=== PATIENT | female | born 1990 | race African-American/Black ===

== ENCOUNTER 2019-05-07 16:19 | Outpatient (RCR) | payer OTHER, SELFPAY ==
[2019-05-07 17:58] LABS: Basophils Percent Auto 0.3 % (0.2-1.2); Eosinophils Absolute Auto 0.1 K/mm3 (0-0.3); Eosinophils Percent Auto 0.7 % (0-4.4); Hematocrit 29.3 % (37.0-47.0); Immature Granulocyte Absolute 0.05 K/mm3 (0.00-0.031); Immature Granulocyte Percent A 0.6 % (0-0.5); Lymphocytes Absolute Auto 3.14 K/mm3 (0.9-3.2); Lymphocytes Percent Auto 34.7 % (18.3-44.2); Mean Corpuscular HGB Conc 30.7 g/dl (32-36); Mean Corpuscular Volume 74.7 fl (80-100); Mean Platelet Volume 10.8 fl (7.4-10.4); Monocytes Absolute Auto 0.5 K/mm3 (0.1-0.6); Monocytes Percent Auto 5.2 % (2.6-8.5); Neutrophils Absolute Auto 5.3 K/mm3 (1.3-6.7); Neutrophils Percent Auto 58.5 % (45.5-73.1); Platelet Count Result 364 k/mm3 (150-375); Red Blood Count 3.92 M/mm3 (4.2-5.4); Red Cell Distribution Width 14.4 % (11.5-14.5); White Blood Count 9.1 K/mm3 (4.5-10.0)
[2019-05-07 18:12] LABS: Glucose 1 Hour PP 50gm Dose 152 mg/dL
[2019-05-07 18:52] LABS: Hepatitis B Surface Antigen Negative (Negative); Rubella IgG Antibody 61.7 IU/ML
[2019-05-07 18:53] LABS: HIV 1/2 Ab P24 Ag Result Negative (Negative)
[2019-05-08 11:15] LABS: Rapid Plasma Reagin Non-Reactive (NonReactive)
[2019-05-10 11:20] LABS: Varicella IgM Antibody <=0.90 (<=0.90)
== END 2019-08-05 23:59 | disposition home or self-care (01) ==
LOC: ANHLAB 16:19
PROVIDERS: Visit Provider Obstetrics & Gynecology
DX: N92.5 Other specified irregular menstruation (principal); E66.9 Obesity, unspecified
CPT/HCPCS: 36415; 82947; 84702; 85025; 86592; 86644; 86703; 86747; 86762; 86787; 86850; 86900; 86901; 87077; 87086; 87088; 87186; 87340; G0432

== ENCOUNTER 2019-05-28 21:12 | Inpatient (IN) | payer OTHER, SELFPAY ==
[2019-05-28] VITALS (7 sets, daily range): BP systolic 142–179; BP diastolic 89–98; PULSE 96–107; BMI 34.5
--- NOTE | 2019-05-28 22:55 | LDADM ---
This patient, Chana Judge, was admitted to Labor/Delivery/Recovery 103 on 05/28/19 at 22:17. Plans for labor, pain management and were discussed with patient. Patient/family oriented to hospital policies and general routines including ID bracelet, bed and alarms, visiting hours, pain management, procedures, bathroom and other care routines, personal items, smoking policy, room service/diet and guest tray routines, security routines, and visiting hours. Patient/Family are encouraged to report perceived risks to care and to ask questions if they do not understand what they are told or what they should do. See OBIX for further documentation.
[2019-05-28 23:19] LABS: Basophils Percent Auto 0.3 % (0.2-1.2); Eosinophils Absolute Auto 0.1 K/mm3 (0-0.3); Eosinophils Percent Auto 0.7 % (0-4.4); Hematocrit 29.1 % (37.0-47.0); Hemoglobin 8.8 g/dL (12.0-15.0); Immature Granulocyte Absolute 0.05 K/mm3 (0.00-0.031); Immature Granulocyte Percent A 0.5 % (0-0.5); Lymphocytes Percent Auto 35.6 % (18.3-44.2); Mean Corpuscular HGB Conc 30.2 g/dl (32-36); Mean Corpuscular Hemoglobin 21.8 pg (26-34); Mean Corpuscular Volume 72.2 fl (80-100); Mean Platelet Volume 11.5 fl (7.4-10.4); Monocytes Absolute Auto 0.7 K/mm3 (0.1-0.6); Monocytes Percent Auto 6.4 % (2.6-8.5); Neutrophils Percent Auto 56.5 % (45.5-73.1); Platelet Count Result 228 k/mm3 (150-375); Red Blood Count 4.03 M/mm3 (4.2-5.4); Red Cell Distribution Width 14.8 % (11.5-14.5); White Blood Count 10.7 K/mm3 (4.5-10.0)
[2019-05-28] MEDS: DINOPROSTONE 10 MG VAG INSERT VAGINAL (23:27)
[2019-05-28 23:28] LABS: Alanine Aminotransferase 9 U/L (4-35); Albumin Level 3.5 g/dL (3.5-5.1); Alkaline Phosphatase 195 U/L (38-126); Aspartate Amino Transferase 21 U/L (14-36); Bilirubin,Total 0.1 mg/dL (0.2-1.3); Blood Urea Nitrogen 5 mg/dL (7-17); Calcium 9.3 mg/dL (8.4-10.2); Carbon Dioxide 23 mmol/L (22-30); Chloride 101 mmol/L (98-107); Estimated CRCL calculation 168 ml/min; Estimated Glomerular Filt Rate > 60; Glucose 129 mg/dL (65-105); Potassium 4.1 mmol/L (3.4-5.0); Sodium 135 mmol/L (137-145)
[2019-05-28 23:37] LABS: Uric Acid 5.2 mg/dL (2.5-7.5)
[2019-05-29] VITALS (112 sets, daily range): BP systolic 122–164; BP diastolic 54–99; PULSE 70–132; RESP 14–16; TEMP 36.4–37.1; O2SAT 95–100
[2019-05-29] MEDS: LACTATED RINGERS 1,000 ML 125 ML IV CONT ×2 (07:17→08:41)
--- NOTE | 2019-05-29 07:46 | WPDHPUPDATE1 ---
History and Physical Update Update Date/Time: 05/29/19 07:46 History and Physical has been reviewed, including an updated exam of the patient. There are NO changes in the patient's condition. Risks, benefits, and alternatives have been discussed and questions answered. Patient agrees to proceed with procedure.
--- NOTE | 2019-05-29 07:46 | WPDOBADMIT ---
Obstetrics - Admit Note Admission Note: record reviewed. No pertinent additions to the history and/or any subsequent changes in the physical findings that are not consistent with the expected course of the were found. Additions to the history and/or subsequent changes in the physical findings follow. None.
[2019-05-29 07:58] LABS: Rapid Plasma Reagin Non-Reactive (NonReactive)
--- NOTE | 2019-05-29 13:18 | PM.OBPRVD ---
OB - Delivery Note Procedure Delivery date: 05/29/19 events: Induced HTN Route of delivery: Episiotomy description: None Laceration description: None Specimen: Yes Estimated blood loss (mL): 200 Anesthesia type: Epidural Disposition: floor Narrative: Patient was prepped and draped in the usual manner for this procedure. Maternal expulsive effort readily deliver the vertex which was suctioned of the naso and oropharynx. Nuchal cord was noted and delivered through with further pushing. Cord was clamped and cut and the baby was passed off the operative field. Placenta delivered spontaneously. Cervix vagina and vulva were inspected. No lacerations or tears. Uterus was well contracted at this point the procedure was considered terminated. Baby Weeks of gestation at delivery: 38 gender: Female Weight (pounds): 7 Weight (ounces): 2 presentation: vertex Placenta delivery description: Spontaneous cord vessel description: 3 Vessels score one minute: 8 score five minutes: 9
--- NOTE | 2019-05-29 17:18 | PC.NURSE ---
Patient transferred to post room #287 via wheelchair. Oriented to unit, room, information board, rooming in, admission packet and security measures. Patient verbalizes understanding.
[2019-05-29] MEDS: DOCUSATE SODIUM 100 MG CAPSULE PO (19:53)
[2019-05-29] MEDS: POLYSACCHARIDE IRON COMPLEX 150 MG CAPSULE PO (19:53)
[2019-05-30] MEDS: IBUPROFEN 600 MG TABLET PO (05:16)
[2019-05-30 05:18] LABS: Hematocrit 27.9 % (37.0-47.0); Hemoglobin 8.6 g/dL (12.0-15.0)
[2019-05-30 08:25] VITALS: BP 149/94; PULSE 82; RESP 18; TEMP 36.4
[2019-05-30] MEDS: POLYSACCHARIDE IRON COMPLEX 150 MG CAPSULE PO ×2 (08:43→17:48)
[2019-05-30] MEDS: DOCUSATE SODIUM 100 MG CAPSULE PO ×2 (08:43→17:48)
--- NOTE | 2019-05-30 10:10 | P.DS_ITS ---
OB - DS: Summary OB Procedures : PIH Mgmt OB Procedures Intrapartum: Spontaneous Vag Delivery OB Procedures: : None Time Spent with Patient Time attestation: Total time spent providing and/or coordinating discharge services: DS: Data Data Completed and Pending Pending studies at discharge: Pending at discharge 05/29/19 13:13 Surgical [PTH] Routine Labs on day of discharge: Labs from last 24 hours 05/30/19 05:10 Hgb 8.6 L Hct 27.9 L Discharge Plan Discharge Attending physician on discharge: Dionisio Connolly Discharging Clinician: Dionisio Connolly Anticipated Discharge Date/Time: 05/31/19 10:00 Patient Disposition: Home, Self-Care Activity: as tolerated Diet: as tolerated Patient Instructions: Antibiotic Form Stand Alone Forms: General Discharge Information Follow-up/Referrals: Dionisio Connolly MD [Physician] - 1 Week Discharge Medications: New ibuprofen 600 mg Tablet 600 mg PO Q6H PRN (Reason: Cramping) Qty: 30 RF: 0 Continued PNV 29-1 29 mg iron- 1 mg tablet RF: 0 Discontinued aspirin 81 mg tablet,delayed release (DR/EC) RF: 0 Date of admission: 05/28/19 22:17 Primary Care Provider: PHYSICIAN,REGISTERED NURSE HH CASE MANAGER Admitting Provider: Dionisio Connolly Attending physician on admission: Dionisio Connolly
[2019-05-30] MEDS: TETANUS,DIPHTHERIA,AC PERTUSSIS ADULT 0.5 ML (ADACEL) IM (12:39)
--- NOTE | 2019-05-30 14:10 | WPDANLDPN2 ---
Anes-Prog Note L&D Date/Time: 05/30/19 14:10 Comfortable throughout: labor and delivery Neuraxial method: epidural Epidural/Spinal procedure site: clean & non-tender Neuro status: Neuro function grossly intact. Cardiovascular status: normal Respiratory status: normal Airway patency: baseline Mental status: baseline Post-Op hydration status: normal Vital Signs: Last Vital Signs Temp 97.6 F 05/30/19 08:25 Pulse 82 05/30/19 08:25 Resp 18 05/30/19 08:25 BP 149/94 H 05/30/19 08:25 Pulse Ox 100 05/29/19 19:40 Post-procedural complaints: none Patient feedback: Patient satisfied with anesthetic care.
[2019-05-30 19:40] VITALS: BP 141/89; PULSE 98; RESP 18; TEMP 36.9; O2SAT 100
--- NOTE | 2019-05-31 02:20 | PC.NURSE ---
Patient viewed the discharge video Mother & Baby Care, The First Two Weeks . Patient was given the opportunity and encouraged to ask questions. Patient verbalized understanding of information shared and has been given the mother/baby guide for home reference.
[2019-05-31] MEDS: DOCUSATE SODIUM 100 MG CAPSULE PO (07:58)
[2019-05-31] MEDS: POLYSACCHARIDE IRON COMPLEX 150 MG CAPSULE PO (07:59)
[2019-05-31 08:15] VITALS: BP 135/83; PULSE 79; RESP 18; TEMP 36.7; O2SAT 100
--- NOTE | 2019-06-05 02:35 | PM.OBDSVD ---
DS: Diagnosis Admitting Diagnosis Admitting Diagnosis: Encounter for supervision of normal , unspecified, third trimester OB - DS: Summary OB Procedures : None OB Procedures Intrapartum: Spontaneous Vag Delivery OB Procedures: : None Time Spent with Patient Time attestation: Total time spent providing and/or coordinating discharge services: DS: Data Data Completed and Pending Completed studies during hospitalization: Pending at discharge 05/29/19 13:13 Surgical [PTH] Routine Discharge Plan Discharge Attending physician on discharge: Dionisio Connolly Discharging Clinician: Dionisio Connolly Anticipated Discharge Date/Time: 05/31/19 10:00 Patient Disposition: Home, Self-Care Activity: as tolerated Diet: as tolerated Discharge Instructions: Education: Mom and Baby Guide Given to: Mother Follow-Up: Call your delivering provider's office for an appointment to be seen in: 1 Week Mom and baby should come to the [facility] for the follow-up appointment. Appointment Date/Time: June 03, 2019 at 11:00 am What to expect at your follow-up visit: Physical Assessment Call [phone] if you are unable to keep your appointment time. BREAST CARE: 1. Wear a snug supportive bra. 2. For engorgement discomfort Bottle Feeding: A. May apply ice packs EPISIOTOMY/PERINEAL CARE: 1. Until bleeding stops, use your whitley bottle after urinating 2. Change your pad frequently throughout the day 3. You may take sitz baths several times a day (fill your bathtub with warm water and soak for 20 minutes.) Do NOT bathe in the water 4. No tub baths until seen by your physician - You may shower ACTIVITY: 1. Rest as much as possible. 2. Do not exercise or lift anything heavier than your baby (such as laundry or other children.) 3. Avoid stairs or driving as much as possible. 4. Do not put anything into the vagina. No douching, tampons, or sexual activity until seen by physician. NOTIFY PHYSICIAN IF YOU HAVE ANY QUESTIONS OR IF ANY OF THE FOLLOWING SYMPTOMS OCCUR: 1. If your vaginal bleeding becomes foul smelling. 2. If your vaginal bleeding becomes more heavy than a period or if your bleeding changes from pink to bright red. However, you may pass an occasional walnut-sized clot once or twice for the first week . 3. If you experience a sharp, shooting pain in you calves. 4. If you discover a hard, reddened area on your breast or if you experience flu-like symptoms. DIET: 1. Eat regular, well-balanced meals. 2. Drink plenty of fluids daily. If , drink to thirst. Stand Alone Forms: General Discharge Information Follow-up/Referrals: Dionisio Connolly MD [Physician] - 1 Week Discharge Medications: New ibuprofen 600 mg Tablet 600 mg PO Q6H PRN (Reason: Cramping) Qty: 30 RF: 0 Continued PNV 29-1 29 mg iron- 1 mg tablet RF: 0 Discontinued aspirin 81 mg tablet,delayed release (DR/EC) RF: 0 Date of admission: 05/28/19 22:17 Primary Care Provider: PHYSICIAN,HOT AIR FURNACE INSTALLER AND REPAIRER Admitting Provider: Whitney Medellin Discharge Date/Time: 05/31/19 11:21 Attending physician on admission: Dionisio Connolly
--- NOTE | 2019-06-05 13:27 | P.DS_ITS ---
DS: Diagnosis Admitting Diagnosis Admitting Diagnosis: Encounter for supervision of normal , unspecified, third trimester OB - DS: Summary OB Procedures : None OB Procedures Intrapartum: Spontaneous Vag Delivery OB Procedures: : None Time Spent with Patient Time attestation: Total time spent providing and/or coordinating discharge services: DS: Data Data Completed and Pending Completed studies during hospitalization: Pending at discharge 05/29/19 13:13 Surgical [PTH] Routine Discharge Plan Discharge Attending physician on discharge: Dionisio Connolly Discharging Clinician: Dionisio Connolly Anticipated Discharge Date/Time: 05/31/19 10:00 Patient Disposition: Home, Self-Care Activity: as tolerated Diet: as tolerated Discharge Instructions: Education: Mom and Baby Guide Given to: Mother Follow-Up: Call your delivering provider's office for an appointment to be seen in: 1 Week Mom and baby should come to the [facility] for the follow-up appointment. Appointment Date/Time: June 03, 2019 at 11:00 am What to expect at your follow-up visit: Physical Assessment Call [phone] if you are unable to keep your appointment time. BREAST CARE: 1. Wear a snug supportive bra. 2. For engorgement discomfort Bottle Feeding: A. May apply ice packs EPISIOTOMY/PERINEAL CARE: 1. Until bleeding stops, use your whitley bottle after urinating 2. Change your pad frequently throughout the day 3. You may take sitz baths several times a day (fill your bathtub with warm water and soak for 20 minutes.) Do NOT bathe in the water 4. No tub baths until seen by your physician - You may shower ACTIVITY: 1. Rest as much as possible. 2. Do not exercise or lift anything heavier than your baby (such as laundry or other children.) 3. Avoid stairs or driving as much as possible. 4. Do not put anything into the vagina. No douching, tampons, or sexual activity until seen by physician. NOTIFY PHYSICIAN IF YOU HAVE ANY QUESTIONS OR IF ANY OF THE FOLLOWING SYMPTOMS OCCUR: 1. If your vaginal bleeding becomes foul smelling. 2. If your vaginal bleeding becomes more heavy than a period or if your bleeding changes from pink to bright red. However, you may pass an occasional walnut- sized clot once or twice for the first week . 3. If you experience a sharp, shooting pain in you calves. 4. If you discover a hard, reddened area on your breast or if you experience flu-like symptoms. DIET: 1. Eat regular, well-balanced meals. 2. Drink plenty of fluids daily. If , drink to thirst. Stand Alone Forms: General Discharge Information Follow-up/Referrals: Dionisio Connolly MD [Physician] - 1 Week Discharge Medications: New ibuprofen 600 mg Tablet 600 mg PO Q6H PRN (Reason: Cramping) Qty: 30 RF: 0 Continued PNV 29-1 29 mg iron- 1 mg tablet RF: 0 Discontinued aspirin 81 mg tablet,delayed release (DR/EC) RF: 0 Date of admission: 05/28/19 22:17 Primary Care Provider: PHYSICIAN,RAILWAY STATION MANAGER Admitting Provider: Whitney Medellin Discharge Date/Time: 05/31/19 11:21 Attending physician on admission: Dionisio Connolly
== END 2019-05-31 11:21 | disposition home or self-care (01) | DRG 560 ==
LOC: ANHLDR 22:17 → ANHOB2 05-29 16:17
PROVIDERS: Admitting Provider Obstetrics & Gynecology; Visit Provider Obstetrics & Gynecology
DX: O13.4 Gestational [pregnancy-induced] hypertension without significant proteinuria, complicating childbirth (principal); Z37.0 Single live birth; Z3A.38 38 weeks gestation of pregnancy; O69.81X0 Labor and delivery complicated by cord around neck, without compression, not applicable or unspecified
CPT/HCPCS: 36415; 80053; 84550; 85014; 85018; 85025; 86592; 86850; 86900; 86901; 88307; 90715; A9270; J2590; J2795; J7120

== ENCOUNTER 2020-10-19 15:51 | Observation (INO) | payer OTHER, SELFPAY ==
--- NOTE | ~2020-10-19 | US_ITS ---
EXAMINATION: US venous doppler [facility] EXAM DATE: 10/19/2020 16:52 INDICATION: Left leg pain and swelling. . TECHNIQUE: Multiple grayscale, color flow and Doppler images of the left lower extremity deep venous system were obtained and reviewed. There is no prior study for comparison. FINDINGS: The left common femoral, femoral and profunda veins demonstrate normal color flow, respirat ory variation, augmentation and compressibility. Compressibility, color flow confirmed within the le ft popliteal, posterior tibial, peroneal, and greater saphenous veins. IMPRESSION: 1. No left lower extremity deep venous thrombosis. Reviewed, dictated and finalized at location A.
[2020-10-19 16:08] VITALS: BP 176/80; PULSE 105; RESP 18; TEMP 36.8; O2SAT 100
[2020-10-19 18:46] VITALS: BP 140/105; O2SAT 100
[2020-10-19 18:46] LABS: Basophils Percent Auto 0.2 % (0.2-1.2); Eosinophils Absolute Auto 0.1 K/mm3 (0-0.3); Eosinophils Percent Auto 0.6 % (0-4.4); Hematocrit 31.8 % (37.0-47.0); Hemoglobin 9.8 g/dL (12.0-15.0); Immature Granulocyte Absolute 0.02 K/mm3 (0.00-0.031); Immature Granulocyte Percent A 0.2 % (0-0.5); Lymphocytes Absolute Auto 2.84 K/mm3 (0.9-3.2); Lymphocytes Percent Auto 32.3 % (18.3-44.2); Mean Corpuscular HGB Conc 30.8 g/dl (32-36); Mean Corpuscular Hemoglobin 23.3 pg (26-34); Mean Corpuscular Volume 75.7 fl (80-100); Mean Platelet Volume 10.2 fl (7.4-10.4); Monocytes Absolute Auto 0.6 K/mm3 (0.1-0.6); Neutrophils Absolute Auto 5.3 K/mm3 (1.3-6.7); Neutrophils Percent Auto 59.7 % (45.5-73.1); Platelet Count Result 249 k/mm3 (150-375); Red Cell Distribution Width 15.3 % (11.5-14.5); White Blood Count 8.8 K/mm3 (4.5-10.0)
--- NOTE | 2020-10-19 18:48 | ED.GENADULT ---
HPI - General Adult General Chief complaint: Extremity Problem,Nontraumatic Stated complaint: L Foot pain and swelling Time Seen by Provider: 10/19/20 18:24 Source: patient History of Present Illness HPI narrative: Patient is a 30 y/o female complaining of moderate left ankle and foot swelling starting 2 days ago. She states elevation decreases the swelling. She has minimal pain. She is able to ambulate. She has no fever or chills. Of note, she is approximately 30 week . Her EDC is 12/27/20. Related Data Home Medications Medication Instructions Recorded Confirmed PNV 29-1 tablet 05/28/19 Allergies Allergy/AdvReac Type Severity Reaction Status Date / Time No Known Allergies Verified 10/19/20 18:31 Review of Systems Review of Systems: All systems reviewed & are unremarkable except as noted in HPI and below Constitutional: Constitutional: Denies chills, Denies fever(s), Denies headache(s) and Denies weakness Eyes: Eyes: Denies blurry vision ENT: Denies headache(s) and Denies neck pain Cardiovascular: Cardiovascular: Denies chest pain and Denies dyspnea Respiratory: Respiratory: Denies cough and Denies dyspnea Gastrointestinal: Gastrointestinal: Denies abdominal pain, Denies diarrhea, Denies nausea and Denies vomiting Genitourinary: Genitourinary: Denies hematuria and Denies dysuria Musculoskeletal: Musculoskeletal: Denies back pain, Denies neck pain and Reports other (left foot and ankle swelling) Neurologic: Denies headache(s) and Denies weakness PMFSH Social History Social History Smoking status: Never smoker Substance use: never Gender identity (if verbalized by the patient): Female Spiritual care concerns: No Exam Const: General: no acute distress and well developed Orientation/consciousness: oriented to person, oriented to place, oriented to time and patient oriented x3 HENMT: Head: normocephalic Ears: external ears normal General nose exam: Normal external nose present Eyes: General: appearance normal, both eyes and all related structures Conjunctivae: conjunctivae normal Neck: Neck: normal visual inspection and full ROM Chest: Chest palpation & inspection: normal inspection of the chest and no tenderness Resp: Effort & Inspection: normal respiratory effort Auscultation: clear to auscultation bilaterally Cardio: Rate: regular rate Rhythm: regular rhythm GI: Inspection: distended GI Palp: No abdominal tenderness and Yes Soft to palpation Skin: General skin exam: normal color, turgor normal and erythema (left lower leg and foot) Neuro: General: oriented to person, oriented to place, oriented to time and patient oriented x3 Cognition (Neuro): normal cognition Extrem: General: normal to inspection, full ROM and no pedal edema Left lower extremity: ankle Details: pitting edema and foot Details: edema Psych: Appearance: grossly normal Mental Status: mental status grossly normal Affect: normal affect Course Consultations Consultation #1: Discussed with Dr. Lyn, who recommends patient going to OB for monitoring after discharge. Date: 10/19/20 Time: 20:41 Vital Signs Vital signs: Vital Signs Temperature 36.8 C 10/19/20 16:08 Pulse Rate 105 H 10/19/20 16:08 Respiratory Rate 18 10/19/20 16:08 Blood Pressure 176/80 H 10/19/20 16:08 Pulse Oximetry 100 10/19/20 16:08 Temperature 36.8 C 10/19/20 16:08 Pulse Rate 97 10/19/20 20:32 Respiratory Rate 20 10/19/20 20:32 Blood Pressure 144/106 H 10/19/20 20:32 Pulse Oximetry 100 10/19/20 20:32 Medical Decision Making Vital Signs Vital Signs: Vital Signs Temperature 36.8 C 10/19/20 16:08 Pulse Rate 105 H 10/19/20 16:08 Respiratory Rate 18 10/19/20 16:08 Blood Pressure 176/80 H 10/19/20 16:08 Pulse Oximetry 100 10/19/20 16:08 Temperature 36.8 C 10/19/20 16:08 Pulse Rate 97 10/19/20 20:32 Respiratory Rat
[2020-10-19 18:56] LABS: Alanine Aminotransferase 17 U/L (4-35); Albumin Level 3.4 g/dL (3.5-5.1); Alkaline Phosphatase 108 U/L (38-126); Anion Gap 7 mmol/L (8-16); Aspartate Amino Transferase 57 U/L (14-36); Bilirubin,Total 0.1 mg/dL (0.2-1.3); Blood Urea Nitrogen 7 mg/dL (7-17); Calcium 9.2 mg/dL (8.4-10.2); Carbon Dioxide 24 mmol/L (22-30); Chloride 106 mmol/L (98-107); Estimated CRCL calculation 137 ml/min; Estimated Glomerular Filt Rate > 60; Glucose 94 mg/dL (65-105); Potassium 3.5 mmol/L (3.4-5.0); Sodium 137 mmol/L (137-145)
[2020-10-19 19:12] LABS: Uric Acid 5.9 mg/dL (2.5-7.5)
[2020-10-19 19:15] VITALS: O2SAT 100
[2020-10-19 19:30] VITALS: O2SAT 100
[2020-10-19 20:13] LABS: Add Urine Microscopic? YES; Appearance Urine Turbid (Clear); Bacteria Urine 3+ /hpf; Bilirubin Urine Negative (Negative); Blood Urine 1+ (Negative); Color Urine Yellow (Yellow); Glucose Urine UA Negative (Negative); Ketones Urine 1+ mg/dL (Negative); Leukocyte Esterase Ur 3+ LEU/UL (Negative); Mucus Urine Heavy /lpf; Nitrate Urine Negative (Negative); Protein Urine 2+ mg/dL (Negative); RBC Urine >75 /hpf (0-2); Specific Grav Ur 1.028 (1.001-1.035); Squamous Epithelial Cell Urine Many /hpf (Few); Urobilinogen Urine Negative mg/dL (<2.0); WBC Urine >75 /hpf
[2020-10-19 20:32] VITALS: BP 144/106; BP 146/105; PULSE 94; PULSE 97; RESP 20; O2SAT 100
[2020-10-19 21:00] VITALS: BP 144/106; PULSE 97; RESP 20; TEMP 36.8; O2SAT 100
--- NOTE | 2020-10-19 21:00 | PC.NURSE ---
Pt here for evaluation of Swelling left lower leg and elevated blood pressure. Pt sent from ER after treatment in ER. PIH labs and Doppler study done in ER. Pt to have NST per Dr. Lyn.
== END 2020-10-19 22:05 | disposition home or self-care (01) ==
LOC: ANHED 20:45 → ANHOBPP 22:05
PROVIDERS: Admitting Provider Student in an Organized Health Care Education/Training Program; Emergency Provider Emergency Medicine; PCP Student in an Organized Health Care Education/Training Program; Visit Provider Student in an Organized Health Care Education/Training Program
DX: O99.713 Diseases of the skin and subcutaneous tissue complicating pregnancy, third trimester (principal); L03.116 Cellulitis of left lower limb; O13.3 Gestational [pregnancy-induced] hypertension without significant proteinuria, third trimester; Z3A.30 30 weeks gestation of pregnancy
CPT/HCPCS: 36415; 59025; 80053; 81001; 84550; 85025; 87086; 87088; 93971; 99285; G0378; G0379

== ENCOUNTER 2020-11-24 19:29 | Inpatient (IN) | payer OTHER, SELFPAY ==
[2020-11-24] VITALS (33 sets, daily range): BP systolic 148–207; BP diastolic 81–169; PULSE 76–93; BMI 37.6
[2020-11-24 20:42] LABS: Basophils Percent Auto 0.2 % (0.2-1.2); Eosinophils Absolute Auto 0.1 K/mm3 (0-0.3); Eosinophils Percent Auto 0.5 % (0-4.4); Hematocrit 31.5 % (37.0-47.0); Hemoglobin 9.6 g/dL (12.0-15.0); Immature Granulocyte Absolute 0.04 K/mm3 (0.00-0.031); Immature Granulocyte Percent A 0.3 % (0-0.5); Lymphocytes Absolute Auto 4.42 K/mm3 (0.9-3.2); Lymphocytes Percent Auto 34.7 % (18.3-44.2); Mean Corpuscular HGB Conc 30.5 g/dl (32-36); Mean Corpuscular Hemoglobin 22.5 pg (26-34); Mean Corpuscular Volume 73.9 fl (80-100); Mean Platelet Volume 10.9 fl (7.4-10.4); Monocytes Absolute Auto 0.8 K/mm3 (0.1-0.6); Neutrophils Absolute Auto 7.4 K/mm3 (1.3-6.7); Neutrophils Percent Auto 58.3 % (45.5-73.1); Platelet Count Result 264 k/mm3 (150-375); Red Blood Count 4.26 M/mm3 (4.2-5.4); Red Cell Distribution Width 15.2 % (11.5-14.5); White Blood Count 12.7 K/mm3 (4.5-10.0)
--- NOTE | 2020-11-24 20:45 | PC.NURSE ---
Pt arrived to labor and delivery with complaint of vaginal bleeding and contractions. Stated both bleeding and contraction since yesterday. Pt blood pressure elevated on admission. During initial assessment pt was noted to be completely dilated. Moved to room 105. SEE OBIX.
[2020-11-24] MEDS: LACTATED RINGERS 1,000 ML 125 ML IV CONT (20:53)
[2020-11-24] MEDS: AMPICILLIN 2 GM/NS 100 ML 2 GM/100 ML BAG IVPB (20:54)
[2020-11-24 20:57] LABS: Alanine Aminotransferase 11 U/L (4-35); Albumin Level 3.4 g/dL (3.5-5.1); Alkaline Phosphatase 159 U/L (38-126); Anion Gap 7 mmol/L (8-16); Aspartate Amino Transferase 27 U/L (14-36); Bilirubin,Total < 0.1 mg/dL (0.2-1.3); Blood Urea Nitrogen 3 mg/dL (7-17); Calcium 9.2 mg/dL (8.4-10.2); Carbon Dioxide 23 mmol/L (22-30); Chloride 103 mmol/L (98-107); Estimated Glomerular Filt Rate > 60; Glucose 95 mg/dL (65-110); Potassium 3.6 mmol/L (3.4-5.0); Sodium 133 mmol/L (137-145); Uric Acid 5.7 mg/dL (2.5-7.5)
[2020-11-24] MEDS: LABETALOL HCL INJ 100 MG/20 ML VIAL 20 MG IV PUSH (20:59)
[2020-11-24 21:06] LABS: Prothrombin Time 13.3 Seconds (11.1-14.7)
[2020-11-24 21:07] LABS: Partial Thromboplastin Time 22.8 SECONDS (22.3-36.8)
[2020-11-24] MEDS: OXYTOCIN 30 UNITS/NS 500 ML 30 UNITS/500 ML BAG 999 UNITS IV CONT (21:29)
[2020-11-24 21:37] LABS: Fibrinogen 305 mg/dl (215-510)
[2020-11-24 21:38] LABS: Glucose Point of Care 94 mg/dl (65-105)
--- NOTE | 2020-11-24 21:39 | WPDOBADMIT ---
Obstetrics - Admit Note Admission Note: record reviewed. Additions to the history and/or subsequent changes in the physical findings follow: 30 y/o at 35 2/7 weeks here with abdominal pain and vaginal bleeding. No leakage of fluid. Has A1DM, but does not check blood glucose regularly. Has chronic HTN and a history of preeclampsia. Has been prescribed labetalol, but does not know her dose or when her last dose was taken. GBS unknown. Cervix found to be completely dilated at the time of her admission. I was called to come to the hospital immediately. Had SROM just before my arrival, with clear fluid. BP 160-180/90-110. Otherwise, AVSS ABD soft, gravid, nontender between contractions EXT nontender with bilateral lower extremity edema. Cervix complete / +1, vertex. NST good variability TOCO: contractions every 2-3 min Accucheck 94 A: IUP at 35 2/7 weeks with labor, SROM, CHTN with severely elevated bp, A1 DM, poor compliance, grand multiparity. P: Have started ampicillin. Peds aware. See my delivery note.
[2020-11-24] MEDS: LABETALOL HCL INJ 100 MG/20 ML VIAL 40 MG IV PUSH (21:44)
--- NOTE | 2020-11-24 21:45 | P.PCNOB_ITS ---
OB - Delivery Note Procedure Delivery date: 11/24/20 Procedure: events: Labor < 37 Weeks and Gestational Diabetes Delivery monitor: external FHT and external uterine Route of delivery: Laceration Description: None Specimen: Yes (cord blood, placenta) Quantitative Blood Loss (ml): 320 Anesthesia type: None Disposition: PACU Complications: None Narrative: 30 y/o at 35 2/7 weeks gestation who presented to the hospital with vaginal bleeding and contractions. Cervix was found to be completely dilated at the time of arrival. BP 160-180/90-100. Accucheck 94. She was given IV fluids, ampicillin, and a dose of IV labetalol 20 mg. She had SROM with clear fluid, then a sudden urge to push. She pushed with good effort and delivered the infant's head to the perineum. A nuchal cord x 2 was splinted. The body delivered, followed by bloody amniotic fluid. The cord was reduced. The nose and mouth were bulb suctioned. After a delay, the cord was clamped and cut. The infant was handed off the field. Cord blood was collected. The placenta delivered spontaneously. The usual 3 vessel cord was noted. The perineum was intact. Needle and instrument counts were correct. The patient was taken to recovery room in stable condition. The went to the nursery in stable condition. I was present and scrubbed for the entire delivery. Pediatrics was also present for delivery. [place] Baby Date of : 11/24/20 Time of : 21:46 Weeks of gestation at delivery: 35 gender: Female Weight (pounds): 5 Weight (ounces): 3 presentation: vertex position: Right Occiput Anterior Placenta delivery description: Spontaneous and Normal Configuration cord vessel description: 3 Vessels, Nuchal Cord (x2) and Delayed Cord Clamping score one minute: 8 score five minutes: 9
--- NOTE | 2020-11-24 21:51 | PM.OBDSVD ---
DS: Admitting Diagnosis Admitting Diagnosis IUP at 35 2/7 weeks CHTN with severely elevated bp Labor with SROM A1 DM Poor compliance DS: Discharge Diagnosis Discharge Diagnosis (1) delivery, delivered: Code(s): O60.10X0 - labor with delivery, unspecified trimester, not applicable or unspecified Status: Acute (2) Gestational diabetes mellitus: Code(s): O24.419 - Gestational diabetes mellitus in , unspecified control Status: Acute (3) Chronic hypertension affecting : Code(s): O10.919 - Unspecified pre-existing hypertension complicating , unspecified trimester Status: Acute (4) (normal spontaneous vaginal delivery): Code(s): O80 - Encounter for full-term uncomplicated delivery Status: Acute OB - DS: Summary OB Procedures : None OB Procedures Intrapartum: Spontaneous Vag Delivery OB Procedures: : None DS: Data Data Completed and Pending Labs on day of discharge: Labs from last 24 hours 11/24/20 11/24/20 11/24/20 21:03 20:38 20:38 WBC RBC Hgb Hct MCV MCH MCHC RDW Plt Count MPV Immature Gran % (Auto) Neut % (Auto) Lymph % (Auto) Rincon % (Auto) Eos % (Auto) Baso % (Auto) Lymph # (Auto) Rincon # (Auto) Eos # (Auto) Baso # (Auto) Abs Immat Gran (auto) Absolute Neuts (auto) Absolute Nucleated RBC Nucleated RBC % PT INR APTT Fibrinogen Sodium 133 L Potassium 3.6 Chloride 103 Carbon Dioxide 23 Anion Gap 7 L BUN 3 L Creatinine 0.60 L Estim Creat Clear Calc Not Reportable Estimated GFR > 60 Glucose 95 POC Capillary Glucose 94 Uric Acid 5.7 Calcium 9.2 Total Bilirubin < 0.1 L AST 27 ALT 11 Alkaline Phosphatase 159 H Total Protein 7.0 Albumin 3.4 L Blood Type A Positive Antibody Screen Negative 11/24/20 11/24/20 20:38 20:37 WBC 12.7 H RBC 4.26 Hgb 9.6 L Hct 31.5 L MCV 73.9 L MCH 22.5 L MCHC 30.5 L RDW 15.2 H Plt Count 264 MPV 10.9 H Immature Gran % (Auto) 0.3 Neut % (Auto) 58.3 Lymph % (Auto) 34.7 Rincon % (Auto) 6.0 Eos % (Auto) 0.5 Baso % (Auto) 0.2 Lymph # (Auto) 4.42 H Rincon # (Auto) 0.8 H Eos # (Auto) 0.1 Baso # (Auto) 0.0 Abs Immat Gran (auto) 0.04 H Absolute Neuts (auto) 7.4 H Absolute Nucleated RBC 0.0 Nucleated RBC % 0.0 PT 13.3 INR 1.0 APTT 22.8 Fibrinogen 305 Sodium Potassium Chloride Carbon Dioxide Anion Gap BUN Creatinine Estim Creat Clear Calc Estimated GFR Glucose POC Capillary Glucose Uric Acid Calcium Total Bilirubin AST ALT Alkaline Phosphatase Total Protein Albumin Blood Type Antibody Screen Discharge Plan Discharge Attending physician on discharge: Jose Lyn Discharging Clinician: Jose Lyn Patient Disposition: Home, Self-Care Activity: pelvic rest Diet: regular Discharge Instructions: Education: Mom and Baby Guide Given to: Mother Follow-Up: Call your delivering provider's office for an appointment to be seen in: 1 Week Mom and baby should come to the [facility] for the follow-up appointment. Appointment Date/Time: November 27, 2020 at 2:30 pm What to expect at your follow-up visit: Blood Pressure Check Call [phone] if you are unable to keep your appointment time. BREAST CARE: * Wear a snug supportive bra. * For engorgement discomfort: Breast Feeding: * Apply warm moist washcloths * Express milk as needed to relieve engorgement * Wear loose clothing Bottle Feeding: * May apply ice packs * For sore nipples: * Identify correct latch-on * Apply warm moist washcloths before and after nursing * Air dry nipples after nursing * May appl
[2020-11-24] MEDS: OXYTOCIN 30 UNITS/NS 500 ML 30 UNITS/500 ML BAG 125 UNITS IV CONT (22:08)
[2020-11-25] VITALS (22 sets, daily range): BP systolic 137–181; BP diastolic 77–99; PULSE 80–94; RESP 12–18; TEMP 36.9–37.2; O2SAT 99–100
[2020-11-25] MEDS: hydrALAZINE HCL 20 MG/ML VIAL 5 MG IV PUSH (00:08)
--- NOTE | 2020-11-25 00:49 | OBPPTRN ---
Patient transferred to post room #287 via wheelchair. Support person present. Oriented to unit, room, information board, rooming in, admission packet and security measures. Patient verbalizes understanding.
[2020-11-25 05:22] LABS: Hematocrit 27.4 % (37.0-47.0); Hemoglobin 8.4 g/dL (12.0-15.0)
[2020-11-25 05:58] LABS: Amphetamine Screen Urine Negative (Negative); Barbiturate Screen Urine Negative (Negative); Benzodiazepines Screen Urine Negative (Negative); Cannabinoid Screen Urine Negative (Negative); Cocaine Screen Urine Negative (Negative); Methadone Screen Urine Negative (Negative); Opiate Screen Urine Negative (Negative); Phencyclidine Screen Urine Negative (Negative)
[2020-11-25 06:50] LABS: Rapid Plasma Reagin Non-Reactive (NonReactive)
[2020-11-25] MEDS: POLYSACCHARIDE IRON COMPLEX 150 MG CAPSULE PO ×2 (07:38→16:40)
[2020-11-25] MEDS: DOCUSATE SODIUM 100 MG CAPSULE PO ×2 (07:38→16:40)
[2020-11-25] MEDS: WITCH HAZEL 40 PADS 1 PAD TOPICAL (07:38)
[2020-11-25] MEDS: BENZOCAINE 20% AER SPR (*SP) 56 GM CAN 1 SPRAY TOPICAL (07:38)
[2020-11-25] MEDS: IBUPROFEN 600 MG TABLET PO (07:39)
[2020-11-25] MEDS: LABETALOL HCL 100 MG TABLET 200 MG PO ×2 (07:39→19:31)
--- NOTE | 2020-11-25 14:08 | PM.OBPNVD ---
OB - PN: Subj Subjective Date/time seen: 11/25/20 14:08 Narrative: Pain OK. OB - PN: Obj Data Labs CBC & Chem 7: 11/25/20 05:07 11/24/20 20:38 Labs: Laboratory Results - last 24 hr 11/24/20 11/24/20 11/24/20 20:37 20:38 20:38 WBC 12.7 H RBC 4.26 Hgb 9.6 L Hct 31.5 L MCV 73.9 L MCH 22.5 L MCHC 30.5 L RDW 15.2 H Plt Count 264 MPV 10.9 H Immature Gran % (Auto) 0.3 Neut % (Auto) 58.3 Lymph % (Auto) 34.7 [place] % (Auto) 6.0 Eos % (Auto) 0.5 Baso % (Auto) 0.2 Lymph # (Auto) 4.42 H [place] # (Auto) 0.8 H Eos # (Auto) 0.1 Baso # (Auto) 0.0 Abs Immat Gran (auto) 0.04 H Absolute Neuts (auto) 7.4 H Absolute Nucleated RBC 0.0 Nucleated RBC % 0.0 PT 13.3 INR 1.0 APTT 22.8 Fibrinogen 305 Sodium 133 L Potassium 3.6 Chloride 103 Carbon Dioxide 23 Anion Gap 7 L BUN 3 L Creatinine 0.60 L Estim Creat Clear Calc Not Reportable Estimated GFR > 60 Glucose 95 POC Capillary Glucose Uric Acid 5.7 Calcium 9.2 Total Bilirubin < 0.1 L AST 27 ALT 11 Alkaline Phosphatase 159 H Total Protein 7.0 Albumin 3.4 L Urine Opiates Screen Urine Methadone Screen Ur Barbiturates Screen Ur Phencyclidine Scrn Ur Amphetamine Screen U Benzodiazepines Scrn Urine Cocaine Screen U Cannabinoids Screen RPR Blood Type Antibody Screen 11/24/20 11/24/20 11/25/20 20:38 21:03 00:12 WBC RBC Hgb Hct MCV MCH MCHC RDW Plt Count MPV Immature Gran % (Auto) Neut % (Auto) Lymph % (Auto) [place] % (Auto) Eos % (Auto) Baso % (Auto) Lymph # (Auto) [place] # (Auto) Eos # (Auto) Baso # (Auto) Abs Immat Gran (auto) Absolute Neuts (auto) Absolute Nucleated RBC Nucleated RBC % PT INR APTT Fibrinogen Sodium Potassium Chloride Carbon Dioxide Anion Gap BUN Creatinine Estim Creat Clear Calc Estimated GFR Glucose POC Capillary Glucose 94 Uric Acid Calcium Total Bilirubin AST ALT Alkaline Phosphatase Total Protein Albumin Urine Opiates Screen Urine Methadone Screen Ur Barbiturates Screen Ur Phencyclidine Scrn Ur Amphetamine Screen U Benzodiazepines Scrn Urine Cocaine Screen U Cannabinoids Screen RPR Non-reactive Blood Type A Positive Antibody Screen Negative 11/25/20 11/25/20 05:07 05:07 WBC RBC Hgb 8.4 L Hct 27.4 L MCV MCH MCHC RDW Plt Count MPV Immature Gran % (Auto) Neut % (Auto) Lymph % (Auto) [place] % (Auto) Eos % (Auto) Baso % (Auto) Lymph # (Auto) [place] # (Auto) Eos # (Auto) Baso # (Auto) Abs Immat Gran (auto) Absolute Neuts (auto) Absolute Nucleated RBC Nucleated RBC % PT INR APTT Fibrinogen Sodium Potassium Chloride Carbon Dioxide Anion Gap BUN Creatinine Estim Creat Clear Calc Estimated GFR Glucose POC Capillary Glucose Uric Acid Calcium Total Bilirubin AST ALT Alkaline Phosphatase Total Protein Albumin Urine Opiates Screen Negative Urine Methadone Screen Negative Ur Barbiturates Screen Negative Ur Phencyclidine Scrn Negative Ur Amphetamine Screen Negative U Benzodiazepines Scrn Negative Urine Cocaine Screen Negative U Cannabinoids Screen Negative RPR Blood Type Antibody Screen OB - PN A/P Plan Comments: A: PPD#1, doing well. CHTN, with bp improved on labetalol. P: Routine care. Exam Psych: Other: BP 160/80s Otherwise, AVSS ABD soft, nontender, fundus firm EXT nontender
--- NOTE | 2020-11-25 16:15 | PM.OBPNVD ---
OB - PN: Subj Subjective Date/time seen: 11/25/20 16:15 Patient comments: no complaints, pain well controlled and tolerating diet feeding status: exclusively breast feeding Narrative: patient doing well today. No complaints. Pain is well controlled. She reports minimal bleeding. She is ambulating and voiding without difficulty. She is tolerating PO. She denies N/V, fever, chills. OB - PN: Obj Data Labs CBC & Chem 7: 11/25/20 05:07 11/24/20 20:38 Labs: Laboratory Results - last 24 hr 11/24/20 11/24/20 11/24/20 20:37 20:38 20:38 WBC 12.7 H RBC 4.26 Hgb 9.6 L Hct 31.5 L MCV 73.9 L MCH 22.5 L MCHC 30.5 L RDW 15.2 H Plt Count 264 MPV 10.9 H Immature Gran % (Auto) 0.3 Neut % (Auto) 58.3 Lymph % (Auto) 34.7 [place] % (Auto) 6.0 Eos % (Auto) 0.5 Baso % (Auto) 0.2 Lymph # (Auto) 4.42 H [place] # (Auto) 0.8 H Eos # (Auto) 0.1 Baso # (Auto) 0.0 Abs Immat Gran (auto) 0.04 H Absolute Neuts (auto) 7.4 H Absolute Nucleated RBC 0.0 Nucleated RBC % 0.0 PT 13.3 INR 1.0 APTT 22.8 Fibrinogen 305 Sodium 133 L Potassium 3.6 Chloride 103 Carbon Dioxide 23 Anion Gap 7 L BUN 3 L Creatinine 0.60 L Estim Creat Clear Calc Not Reportable Estimated GFR > 60 Glucose 95 POC Capillary Glucose Uric Acid 5.7 Calcium 9.2 Total Bilirubin < 0.1 L AST 27 ALT 11 Alkaline Phosphatase 159 H Total Protein 7.0 Albumin 3.4 L Urine Opiates Screen Urine Methadone Screen Ur Barbiturates Screen Ur Phencyclidine Scrn Ur Amphetamine Screen U Benzodiazepines Scrn Urine Cocaine Screen U Cannabinoids Screen RPR Blood Type Antibody Screen 11/24/20 11/24/20 11/25/20 20:38 21:03 00:12 WBC RBC Hgb Hct MCV MCH MCHC RDW Plt Count MPV Immature Gran % (Auto) Neut % (Auto) Lymph % (Auto) [place] % (Auto) Eos % (Auto) Baso % (Auto) Lymph # (Auto) [place] # (Auto) Eos # (Auto) Baso # (Auto) Abs Immat Gran (auto) Absolute Neuts (auto) Absolute Nucleated RBC Nucleated RBC % PT INR APTT Fibrinogen Sodium Potassium Chloride Carbon Dioxide Anion Gap BUN Creatinine Estim Creat Clear Calc Estimated GFR Glucose POC Capillary Glucose 94 Uric Acid Calcium Total Bilirubin AST ALT Alkaline Phosphatase Total Protein Albumin Urine Opiates Screen Urine Methadone Screen Ur Barbiturates Screen Ur Phencyclidine Scrn Ur Amphetamine Screen U Benzodiazepines Scrn Urine Cocaine Screen U Cannabinoids Screen RPR Non-reactive Blood Type A Positive Antibody Screen Negative 11/25/20 11/25/20 05:07 05:07 WBC RBC Hgb 8.4 L Hct 27.4 L MCV MCH MCHC RDW Plt Count MPV Immature Gran % (Auto) Neut % (Auto) Lymph % (Auto) [place] % (Auto) Eos % (Auto) Baso % (Auto) Lymph # (Auto) [place] # (Auto) Eos # (Auto) Baso # (Auto) Abs Immat Gran (auto) Absolute Neuts (auto) Absolute Nucleated RBC Nucleated RBC % PT INR APTT Fibrinogen Sodium Potassium Chloride Carbon Dioxide Anion Gap BUN Creatinine Estim Creat Clear Calc Estimated GFR Glucose POC Capillary Glucose Uric Acid Calcium Total Bilirubin AST ALT Alkaline Phosphatase Total Protein Albumin Urine Opiates Screen Negative Urine Methadone Screen Negative Ur Barbiturates Screen Negative Ur Phencyclidine Scrn Negative Ur Amphetamine Screen Negative U Benzodiazepines Scrn Negative Urine Cocaine Screen Negative U Cannabinoids Screen Negative RPR Blood Type Antibody Screen OB - PN A/P Plan day: 1 Plan: routine care Comments: patient doing well H/H ,
[2020-11-26 02:45] VITALS: BP 147/90; PULSE 89; RESP 18; TEMP 37
--- NOTE | 2020-11-26 07:10 | PM.OBDSVD ---
DS: Admitting Diagnosis Admitting Diagnosis labor gestational diabetes gestational hypertension OB - DS: Summary OB Procedures : None OB Procedures Intrapartum: Spontaneous Vag Delivery OB Procedures: : None Status at Discharge Functional status at discharge: independent ambulation Overall status at discharge: patient is back to baseline Time Spent with Patient Time attestation: Total time spent providing and/or coordinating discharge services: Time spent: Less than 30 minutes Exam Const: General: comfortable and no acute distress Resp: Effort & Inspection: normal respiratory effort Auscultation: clear to auscultation bilaterally Cardio: Rate: regular rate GI: GI Palp: Yes Soft to palpation Auscultation: normal bowel sounds Other: Fundus firm below umbilicus Psych: Appearance: grossly normal Mental Status: mental status grossly normal Affect: normal affect DS: Data Data Completed and Pending Pending studies at discharge: Pending at discharge 11/24/20 21:28 Surgical [PTH] Routine Discharge Plan Discharge Attending physician on discharge: Jose Lyn Discharging Clinician: Jose Lyn Patient Disposition: Home, Self-Care Activity: pelvic rest Diet: regular Discharge Instructions: Call or return if temperature above 100.4? F, increased abdominal pain, increased vaginal bleeding or any new problems. Stand Alone Forms: General Discharge Information Follow-up/Referrals: Jose Lyn MD [Primary Care Provider] - 1 Week Discharge Medications: New polysaccharide iron complex 150 mg iron Capsule 150 mg PO BIDWM Qty: 60 RF: 0 labetalol 100 mg Tablet 200 mg PO BID Qty: 60 RF: 2 docusate sodium 100 mg Capsule 100 mg PO BID PRN (Reason: Constipation) Qty: 60 RF: 0 acetaminophen [Mapap (acetaminophen)] 325 mg Tablet 650 mg PO Q6H PRN (Reason: Mild Pain (1-3) Or Headache) Qty: 30 RF: 0 ibuprofen 600 mg Tablet 600 mg PO Q6H PRN (Reason: Cramping) Qty: 30 RF: 0 Continued PNV 29-1 29 mg iron- 1 mg tablet 1 tablet PO DAILY RF: 0 Date of admission: 11/24/20 20:42 Primary Care Provider: Jose Lyn Admitting Provider: Jose Lyn Attending physician on admission: Jose Lyn Condition: Stable
--- NOTE | 2020-11-26 07:30 | PC.NURSE ---
PT introductions made and plan of care discussed per post , vaginal delivery, pain management, bottle feeding, daily care activities and pending discharge to home. PT verbalized understanding of such care. PT sole recipient of such instructions, no barriers to learning identified and PT received instructions per one to one discussion, mom baby care guide book and demonstration.
[2020-11-26 08:20] VITALS: BP 163/89; PULSE 85; RESP 18; TEMP 37.3; O2SAT 100
[2020-11-26 12:00] VITALS: PULSE 85; RESP 18; O2SAT 100
[2020-11-26] MEDS: DOCUSATE SODIUM 100 MG CAPSULE PO (12:05)
[2020-11-26 12:06] VITALS: PULSE 85
[2020-11-26] MEDS: LABETALOL HCL 100 MG TABLET 200 MG PO (12:06)
[2020-11-26] MEDS: MULTIVIT/MIN/PREN/FOL AC/IRON TABLET 1 TAB PO (12:06)
[2020-11-26] MEDS: POLYSACCHARIDE IRON COMPLEX 150 MG CAPSULE PO (12:07)
[2020-11-26] MEDS: IBUPROFEN 600 MG TABLET PO (12:07)
--- NOTE | 2020-11-26 14:00 | PC.NURSE ---
Pt received discharge instructions per protocol and verbalized understanding of such instructions.
--- NOTE | 2020-11-26 14:35 | PC.NURSE ---
PT discharged to home ambulatory accompanied by infant in safety seat and taken to waiting car.
== END 2020-11-26 14:35 | disposition home or self-care (01) | DRG 560 ==
LOC: ANHOBPP 20:00 → ANHLDR 20:49 → ANHOB2 11-25 01:23
PROVIDERS: Admitting Provider Obstetrics & Gynecology; PCP Student in an Organized Health Care Education/Training Program; Visit Provider Student in an Organized Health Care Education/Training Program
DX: O60.14X0 Preterm labor third trimester with preterm delivery third trimester, not applicable or unspecified (principal); Z37.0 Single live birth; Z3A.35 35 weeks gestation of pregnancy; O10.92 Unspecified pre-existing hypertension complicating childbirth; O24.429 Gestational diabetes mellitus in childbirth, unspecified control; O69.81X0 Labor and delivery complicated by cord around neck, without compression, not applicable or unspecified; O77.0 Labor and delivery complicated by meconium in amniotic fluid
CPT/HCPCS: 36415; 80053; 80307; 82948; 84550; 85014; 85018; 85025; 85384; 85610; 85730; 86592; 86850; 86900; 86901; 88307; A9270; J0290; J0360; J2590; J7120

== ENCOUNTER 2021-05-29 15:19 | Emergency (ER) | payer OTHER, SELFPAY ==
[2021-05-29 15:22] VITALS: BP 166/96; PULSE 118; RESP 28; TEMP 36.5; O2SAT 100
[2021-05-29 15:50] VITALS: BP 139/97
--- NOTE | 2021-05-29 16:15 | ED.GENADULT ---
HPI - General Adult General Chief complaint: Unspecified Stated complaint: high blood pressure Time Seen by Provider: 05/29/21 15:31 Source: patient Mode of arrival: ambulatory Limitations: no limitations History of Present Illness HPI narrative: This is a 30 year old female that presents to the ER for blood pressure check. Reports she was recently started on nifedipine for hypertension by her proposal manager writer. Her blood pressure was noted to be elevated to the 180s systolic during her visit this week. She has been taking this daily as prescribed. She wanted to get her blood pressure checked today to make sure the medication was working. She is not currently having any symptoms. Denies headache, chest pain, shortness of breath, or lower extremity edema. Related Data Home Medications Medication Instructions Recorded Confirmed PNV 29-1 1 tablet PO DAILY 05/28/19 11/24/20 Allergies Allergy/AdvReac Type Severity Reaction Status Date / Time No Known Allergies Verified 10/19/20 18:31 Review of Systems Review of Systems: CONSTITUTIONAL: Denies fever CARDIOVASCULAR: Denies chest pain, or edema. RESPIRATORY: Denies dyspnea. NEUROLOGIC: Denies headache, numbness, or weakness. All systems reviewed & are unremarkable except as noted in HPI and below PMFSH Past Medical History Medical History (Updated 05/29/21 @ 16:25 by Ember Zhao PA-C) Hypertension Social History Social History Smoking status: Never smoker Substance use: never Gender identity (if verbalized by the patient): Female Spiritual care concerns: No Exam Narrative: GENERAL: Well-appearing, well-nourished, and in no acute distress. HEAD: Normocephalic, atraumatic. EYES: EOMI. CHEST: Clear to auscultation. No respiratory distress. No wheezes rales or rhonchi HEART: Regular rate and rhythm. No murmur heard. Normal peripheral pulses. EXTREMITIES: Normal range of motion. No edema. SKIN: Warm, dry, no rash. NEURO: No focal deficits. Alert and oriented x3. PSYCH: Normal mood and affect Course Consultations Consultation #1: Spoke with Dr. Olmstead about patient. Date: 05/29/21 Vital Signs Vital signs: Vital Signs Temperature 97.7 F 05/29/21 15:22 Pulse Rate 118 H 05/29/21 15:22 Respiratory Rate 28 H 05/29/21 15:22 Blood Pressure 166/96 H 05/29/21 15:22 Pulse Oximetry 100 05/29/21 15:22 Temperature 97.7 F 05/29/21 15:22 Pulse Rate 118 H 05/29/21 15:22 Respiratory Rate 28 H 05/29/21 15:22 Blood Pressure 139/97 H 05/29/21 15:50 Pulse Oximetry 100 05/29/21 15:22 Medical Decision Making MDM Narrative Medical decision making narrative: Patient presents to the emergency department for blood pressure check. Reports she was recently started on nifedipine for hypertension by her proposal manager writer. She has been taking this daily as prescribed. She is not currently having any symptoms. Initial blood pressure in the ED 166/96. Recheck 139/97. Patient encouraged to get a blood pressure cuff for home to continue to monitor her blood pressure. Instructed to follow-up with her proposal manager writer at her scheduled appointment next week. Spoke with Dr. Olmstead about patient. Patient is stable and felt appropriate for further outpatient evaluation. She was given warnings to return to the ER Vital Signs Vital Signs: Vital Signs Temperature 97.7 F 05/29/21 15:22 Pulse Rate 118 H 05/29/21 15:22 Respiratory Rate 28 H 05/29/21 15:22 Blood Pressure 166/96 H 05/29/21 15:22 Pulse Oximetry 100 05/29/21 15:22 Temperature 97.7 F 05/29/21 15:22 Pulse Rate 118 H 05/29/21 15:22 Respiratory Rate 28 H 05/29/21 15:22 Blood Pressure 139/97 H 05/29/21 15:50 Pulse Oximetry 100 05/29/21 15:22 Critical Care Time Critical Care Time Critical Care Time: No Discharge Plan Discharge Clinical Impression: Hypertension Qualifiers: Hypertension type: unspecified Qu
== END 2021-05-29 16:44 | disposition home or self-care (01) ==
PROVIDERS: Emergency Provider Emergency Medicine; PCP Student in an Organized Health Care Education/Training Program
DX: I10 Essential (primary) hypertension (principal)
CPT/HCPCS: 99281